=== PATIENT | female | born 1955 | race Caucasian/White ===

== ENCOUNTER 2016-09-10 14:39 | Inpatient (IN) | payer BC ==
[~2016-09-10] VITALS: Ht 167.6 cm; Wt 97.5 kg
[2016-09-10] MEDS ORDERED: PROVENTIL HFA 61 INH INH (19:14)
[2016-09-10] MEDS ORDERED: LIPITOR TAB 1010 MG PO (19:14)
[2016-09-10] MEDS ORDERED: CYMBALTA60 MG PO (19:15)
[2016-09-10] MEDS ORDERED: COZAAR50 MG PO (19:15)
[2016-09-10] MEDS ORDERED: CHANTIX0.5 MG PO (19:15)
[2016-09-10] MEDS ORDERED: NITROGLYCERIN0.4 MG SL (19:16)
[2016-09-10] MEDS ORDERED: FLEXERIL 10 MG10 MG PO (19:16)
[2016-09-10] MEDS ORDERED: LOPRESSOR100 MG PO (19:16)
[2016-09-10] MEDS ORDERED: PLAVIX 75 MG TA75 MG PO (19:17)
[2016-09-10] MEDS ORDERED: SYMBICORT 16010.2 GM INH (19:17)
[2016-09-11 04:32] LABS: HEMOGLOBIN 10.8 gm/dl (12.3-15.3); RED BLOOD COUNT 3.51 M/UL (4.00-5.10); WHITE BLOOD COUNT 23.6 K/UL (4.5-11.0)
[2016-09-11 16:08] LABS: HEMOGLOBIN 10.6 gm/dl (12.3-15.3); RED BLOOD COUNT 3.4 M/UL (4.00-5.10); WHITE BLOOD COUNT 22.6 K/UL (4.5-11.0)
[2016-09-12 03:35] LABS: HEMOGLOBIN 10.3 gm/dl (12.3-15.3); RED BLOOD COUNT 3.34 M/UL (4.00-5.10); WHITE BLOOD COUNT 22.3 K/UL (4.5-11.0)
== END 2016-09-12 19:57 | disposition short-term general hospital (02) | DRG 871 ==
LOC: MED SURG 4 14:39 → CCU 18:38 → MED SURG 4 18:38 → PROG CARE 09-11 12:21 → CCU 09-11 17:15
PROVIDERS: ADMIT Emergency Medicine
DX: A41.51 Sepsis due to Escherichia coli [E. coli] (principal); J18.9 Pneumonia, unspecified organism; R65.21 Severe sepsis with septic shock; J98.11 Atelectasis; N11.1 Chronic obstructive pyelonephritis; N17.9 Acute kidney failure, unspecified; J44.9 Chronic obstructive pulmonary disease, unspecified; F17.210 Nicotine dependence, cigarettes, uncomplicated; I25.10 Atherosclerotic heart disease of native coronary artery without angina pectoris; I25.2 Old myocardial infarction; E78.5 Hyperlipidemia, unspecified; G89.29 Other chronic pain; M54.9 Dorsalgia, unspecified; I12.9 Hypertensive chronic kidney disease with stage 1 through stage 4 chronic kidney disease, or unspecified chronic kidney disease; N18.3 Chronic kidney disease, stage 3 (moderate); Z91.041 Radiographic dye allergy status; Z79.899 Other long term (current) drug therapy; Z84.89 Family history of other specified conditions; Z82.49 Family history of ischemic heart disease and other diseases of the circulatory system; Z98.61 Coronary angioplasty status
CPT/HCPCS: ECHO; 36415; 36600; 71010; 80048; 80053; 82803; 83605; 85025; 85027; 87077; 87086; 87186; 93306; 94640; 94664; J1335; J1956; J2185; J2270; J2405; J2550; J7030; J7050

== ENCOUNTER → 2016-09-10 | Outpatient (CLI) | payer BC ==
[~2016-09-10] MED LIST: CHANTIX0.5 MG PO; COZAAR50 MG PO; CYMBALTA60 MG PO; FLEXERIL 10 MG10 MG PO; LIPITOR TAB 1010 MG PO; LOPRESSOR100 MG PO; NITROGLYCERIN0.4 MG SL; PLAVIX 75 MG TA75 MG PO; PROVENTIL HFA 61 INH INH; SYMBICORT 16010.2 GM INH
[2016-09-10 12:32] LABS: HEMOGLOBIN 12.4 gm/dl (12.3-15.3); RED BLOOD COUNT 4.03 M/UL (4.00-5.10); WHITE BLOOD COUNT 19.1 K/UL (4.5-11.0)
[2016-09-11 01:28] LABS: ACINETOBACTER BAUMANNII Not Detected (Negative); ENTEROCOCCUS Not Detected (Negative); KLEBSIELLA OXYTOCA Not Detected (Negative); KPC-CARBAPENEM-RESISTANCE GENE Not Detected (Negative); STAPHYLOCOCCUS Not Detected (Negative); STAPHYLOCOCCUS AUREUS Not Detected (Negative); STREP AGALACTIAE (GROUP B) Not Detected (Negative); STREP PYOGENES (GROUP A) Not Detected (Negative); STREPTOCOCCUS Not Detected (Negative); mecA (METHICILLIN RESIST GENE Not Detected (Negative); vanA/B (VANCOMYCIN RESIST GENE Not Detected (Negative)
[2016-09-11 01:29] LABS: CANDIDA ALBICANS Not Detected (Negative); CANDIDA KRUSEI Not Detected (Negative); CANDIDA TROPICALIS Not Detected (Negative); HAEMOPHILUS INFLUENZAE Not Detected (Negative); KLEBSIELLA PNEUMONIAE Not Detected (Negative); PROTEUS Not Detected (Negative); PSEUDOMONAS AERUGINOSA Not Detected (Negative); SERRATIA MARCESANS Not Detected (Negative)
[2016-09-11 03:12] LABS: ESCHERICHIA COLI DETECTED (Negative)
== END ==
LOC: LAB 10:25
PROVIDERS: Emergency Medicine
DX: E66.8 Other obesity (principal); E78.2 Mixed hyperlipidemia; F17.210 Nicotine dependence, cigarettes, uncomplicated; I10 Essential (primary) hypertension; I25.10 Atherosclerotic heart disease of native coronary artery without angina pectoris; K51.00 Ulcerative (chronic) pancolitis without complications; M54.5 Low back pain; N10 Acute pyelonephritis; R53.83 Other fatigue
CPT/HCPCS: 36415; 80048; 85027; 87040; 87077; 87086; 87150; 87186

== ENCOUNTER → 2016-10-21 | Outpatient (CLI) | payer BC ==
[2016-10-21 12:51] LABS: HEMOGLOBIN 11.9 gm/dl (12.3-15.3); RED BLOOD COUNT 3.93 M/UL (4.00-5.10); WHITE BLOOD COUNT 7.7 K/UL (4.5-11.0)
[2016-10-21 13:10] LABS: BUN/CREATININE RATIO 10 (0-10)
== END ==
LOC: LAB 12:13
PROVIDERS: Emergency Medicine
DX: N10 Acute pyelonephritis (principal); N13.39 Other hydronephrosis; M54.5 Low back pain; R09.02 Hypoxemia; J43.8 Other emphysema; A41.51 Sepsis due to Escherichia coli [E. coli]; M47.894 Other spondylosis, thoracic region; M47.896 Other spondylosis, lumbar region; M47.897 Other spondylosis, lumbosacral region
CPT/HCPCS: 36415; 72072; 72100; 80053; 85027; 85379; 87077; 87086; 87186

== ENCOUNTER → 2016-10-22 | Outpatient (CLI) | payer BC | LOC: NM 11:00 | DX: R79.89 Other specified abnormal findings of blood chemistry (principal); Z91.041 Radiographic dye allergy status | CPT/HCPCS: 71020; 78582; A9540; A9567 ==

== ENCOUNTER → 2016-10-23 | Outpatient (CLI) | payer BC ==
[~2016-10-23] VITALS: Ht 167.6 cm; Wt 95.3 kg
== END ==
LOC: OPSV 16:50
DX: N30.00 Acute cystitis without hematuria (principal); Z91.041 Radiographic dye allergy status
CPT/HCPCS: 96365; J1335; J7050

== ENCOUNTER → 2016-12-29 | Outpatient (CLI) | payer BC | LOC: EROP 17:42 | DX: N30.01 Acute cystitis with hematuria (principal); R30.0 Dysuria; Z91.041 Radiographic dye allergy status | CPT/HCPCS: 96372; J1335 ==

== ENCOUNTER → 2021-12-25 | Outpatient (CLI) | payer BC | LOC: KOH-I 13:55 | DX: J20.9 Acute bronchitis, unspecified (principal); R06.02 Shortness of breath; Z20.822 Contact with and (suspected) exposure to COVID-19; R91.8 Other nonspecific abnormal finding of lung field | CPT/HCPCS: 71045; 71101 ==